=== PATIENT | female | born 1975 | race Asian ===

== ENCOUNTER 2020-02-21 09:51 | Emergency (ER) | payer BC ==
[~2020-02-21] VITALS: Ht 162.6 cm; Wt 61.2 kg
[2020-02-21] MEDS ORDERED: LORAZEPAM INJ 2 MG/ML VIAL IV ONE (10:30)
[2020-02-21] MEDS ORDERED: ONDANSETRON HCL/PF 4 MG/2 ML VIAL IV ONE (10:30)
[2020-02-21] MEDS ORDERED: MORPHINE SULFATE INJ 2 MG/ML DISP.SYRIN IV ONE (10:30)
[2020-02-21] MEDS ORDERED: MORPHINE SULFATE INJ 4 MG/ML DISP.SYRIN ONE (10:34)
[2020-02-21] MEDS ORDERED: LORAZEPAM INJ 2 MG/ML VIAL ONE (10:34)
[2020-02-21] MEDS ORDERED: ONDANSETRON HCL/PF 4 MG/2 ML VIAL ONE (10:34)
--- NOTE | 2020-02-21 10:40 | NUR ---
PT C/O RT SHOULDER PAIN X4 DAYS. PT AAOX4, VSS. RR EVEN & UNLABORED. DENIES CP, SOB, DIZZINESS, N/V AT THIS TIME. PT SEEN & EVAL'D BY DR. DALE. PT TO CT VIA [facility].
--- NOTE | 2020-02-21 10:56 | NUR ---
PT BACK FROM CT. MEDICATED ORDERED, PT MARRY WELL. WILL CONT TO MONITOR.
[2020-02-21 12:03] VITALS: BP 112/67
--- NOTE | 2020-02-21 12:03 | NUR ---
Patient discharged to home in stable condition. Written and verbal after care instructions given. Patient verbalizes understanding of instruction. IV removed. Catheter intact and site benign. Pressure and 4x4 applied to site. No bleeding noted.
== END 2020-02-21 12:04 | disposition home or self-care (01) ==
LOC: ER 09:51
DX: S46.811A Strain of other muscles, fascia and tendons at shoulder and upper arm level, right arm, initial encounter (principal); M54.12 Radiculopathy, cervical region; G89.29 Other chronic pain; X58.XXXA Exposure to other specified factors, initial encounter; Y93.89 Activity, other specified; Y92.89 Other specified places as the place of occurrence of the external cause; Y99.8 Other external cause status
CPT/HCPCS: 72125; 96374; 96375; 99284; J2060; J2270; J2405